=== PATIENT | female | born 1945 | race Caucasian/White ===

== ENCOUNTER 2016-06-25 18:38 | Emergency (ER) | payer MEDICARE, OTHER ==
[~2016-06-25 18:38] MED LIST: EPINEPHrine 1 MG/10 ML Abboject SYRINGE ONE
[2016-06-25] MEDS ORDERED: Famotidine/PF 20 mg/2ml Vial ONE (18:50)
[2016-06-25] MEDS ORDERED: diphenhydrAMINE HCl 50 MG/ML 1 ML VIAL ONE (18:50)
[2016-06-25] MEDS ORDERED: methylPREDNISolone Sod Succ/PF 125 MG/2 ML VIAL ONE (18:51)
[2016-06-25] MEDS ORDERED: Sodium Chloride 0.9% 1,000 ML ONE (18:51)
[2016-06-25] MEDS ORDERED: EPINEPHrine 1 MG/ML VIAL ONE ×2 (18:53→18:54)
[2016-06-25 19:01] LABS: #Basophils 0.1 thou/uL (0.0-0.2); #Eosinphils 0.3 thou/uL (0.0-0.7); #Lymphocytes 1.6 thou/uL (1.20-3.40); #Monocytes 0.2 thou/uL (0.11-0.59); #Neutrophils 2.6 thou/uL (1.40-6.50); %Basophils 2.5 % (0.0-1.0); %Eosinophils 5.9 % (0.0-10.0); %Lymphocytes 33.7 % (21.0-51.0); %Monocytes 3.8 % (0.0-10.0); Hematocrit 40.5 % (36.0-47.0); Mean Platelet Volume 6.3 fL (7.4-10.4); Red Blood Cell (RBC) Count 4.63 mill/uL (4.20-5.40); White Blood Cell (WBC) Count 4.7 thou/uL (4.8-10.8)
[2016-06-25 19:20] LABS: ALT (SGPT) 17 U/L (0-55); AST (SGOT) 23 U/L (5-34); Alkaline Phosphatase 56 U/L (40-150); Anion Gap 15 mmol/L (10-20); BUN (Urea Nitrogen) 18 mg/dL (9.8-20.1); Bilirubin, Total 0.4 mg/dL (0.2-1.2); Calc. Creatinine Clearance 0 mL/min (70-130); Calcium 9.2 mg/dL (7.8-10.44); Carbon Dioxide 24 mmol/L (23-31); Chloride 107 mmol/L (98-107); Estimated GFR-MDRD 41; Globulin 2.5 g/dL (2.4-3.5); Protein, Total 6.3 g/dL (5.8-8.1)
--- NOTE | 2016-06-25 21:22 | ERRECORD ---
[facility] EMERGENCY RECORD HPI ASTHMA (19:53 PMYE) CHIEF COMPLAINT: Patient presents for evaluation of allergic reaction. HISTORIAN: History provided by patient. LOCATION: Symptoms are localized, Tounge and throat. QUALITY: Symptoms described as tightness. SEVERITY: Maximum severity of symptoms moderate, Currently symptoms are moderate. TIME COURSE: Gradual onset of symptoms, Symptoms are worsening. ASTHMA ADMITS: There were no admits in the last five years. ASSOCIATED WITH: 70 y/o F w/ history of allergy presents w/ tongue swelling, erythematous skin and throat "feeling like it's going to close" Symptoms began when she was outside in her barn. EXACERBATED BY: Patient's condition exacerbated by nothing. RELIEVED BY: Patient's condition relieved by nothing. ROS (19:57 PMYE) CONSTITUTIONAL: Negative constitutional review of systems, Historian denies chills, denies fatigue, denies fever. EYES: Negative eye review of systems, Historian denies eye pain, denies eye redness, denies eye discharge. ENT: Historian reports dysphasia, denies epistaxis, denies otalgia, denies sore throat. + tongue swelling. CARDIOVASCULAR: Negative cardiovascular review of systems, Historian denies chest pain, denies dyspnea on exertion, denies syncope, denies palpitations. RESPIRATORY: Negative respiratory review of systems, Historian denies cough, denies shortness of breath, denies wheezing. GI: Negative gastrointestinal review of systems, Historian denies abdominal pain, denies constipation, denies diarrhea, denies nausea, denies vomiting. GENITOURINARY FEMALE: Negative genitourinary review of systems, Historian denies dysuria, denies urgency, denies vaginal bleeding, denies vaginal discharge. MUSCULOSKELETAL: Historian denies arthralgias, denies myalgias. SKIN: Negative skin review of systems, Historian denies rash, denies skin changes. NEUROLOGIC: Negative neurologic review of systems, Historian denies confusion, denies focal weakness, denies headache. PSYCHIATRIC: Negative psychiatric review of systems. PAST MEDICAL HISTORY (19:23 KASA) MEDICAL HISTORY: Tetanus not up to date, Past medical history includes history of diabetes, Type II, with neuropathy, Past medical history includes endocrine disease, hypothyroidism, Past medical history includes history of hyperlipidemia, high cholesterol, currently being treated, Past medical history includes history of hypertension, which has been treated, Patient is compliant. &a-1R&a+25V*p+0X*[id number]*c202B*c15G*c2P*p-0X&a-25V&a+1R Name: Ruma Weeks : 1945 F70 MedRec: [id number] AcctNum: [id number] Prepared: SunJun 26, 2016 00:32 by Interface Page 1 of 4 pMD [facility] EMERGENCY RECORD FEMALE SURGICAL HISTORY: Cataract surgery with lenses replacement bilaterally; Left lumpectomy; Thoracic outlet syndrome -removed first rib and nerve on left side., Surgical history of carpal tunnel surgery, Notes: Bilateral release, Surgical history of hysterectomy, Notes: At age of 28, Surgical history of orthopedic surgery, R TKR, Notes: Jose Luis Ulnar nerve transpositions; R trigger thumb release; Arthroscopic knee surgery on L x4;, Surgical history of thyroidectomy, Date of surgery 2013, Surgical history of tonsillectomy. SOCIAL HISTORY: Patient drinks socially, twice a month, Patient denies drug use, Patient has no smoking history, Lives at home, with family, Patient has pets. KNOWN ALLERGIES Tetanus Toxoid typhoid vaccine CURRENT MEDICATIONS levothyroxine: TABLET : Strength - 137 mcg : ORAL Patient Dose: once a day. (18:44 BDON) metFORMIN: TABLET, EXTENDED RELEASE 24 HR : Strength - 1,000 mg : ORAL Patient Dose: once a day. (18:45 BDON) TABLET, EXTENDED RELEASE 24 HR : Strength - 500 mg : ORAL Patient Dose: Unknown. (18:45 BDON) pantoprazole: TABLET, DELAYED RELEASE (ENTERIC COATED) : Strength - 40 mg : ORAL Patient Dose: 2 times a day. (18:45 BDON) losartan: TABLET : Strength - 50 mg : ORAL Patient Dose: once a day. (18:45 BDON) sertraline: TABLET : Strength - 100 mg : ORAL Patient Dose: once a day. (18:46 BDON) gabapentin: CAPSULE : Strength - 300 mg : ORAL Patient Dose: 2 times a day. (18:46 BDON) atorvastatin: TABLET : Strength - 40 mg : ORAL Patient Dose: 2 times a day. (18:46 BDON) cyclobenzaprine: TABLET : Strength - 10 mg : ORAL Patient Dose: 2 times a day. (18:47 BDON) magnesium oxide: CAPSULE : Strength - 400 mg : ORAL Patient Dose: once a day. (18:48 BDON) aspirin: &a-1R&a+25V*p+0X*[id number]*c202B*c15G*c2P*p-0X&a-25V&a+1R Name: Ruma Weeks : 1945 F70 MedRec: [id number] AcctNum: [id number] Prepared: SunJun 26, 2016 00:32 by Interface Page 2 of 4 pMD [facility] EMERGENCY RECORD TABLET : Strength - 325 mg : ORAL Patient Dose: once a day. (18:48 BDON) folic acid: TABLET : Strength - 1 mg : ORAL Patient Dose: once a day. (18:48 BDON) VITAL SIGNS VITAL SIGNS: BP: 129/53, Pulse: 70, Resp: 32, Temp: 97.0 (Oral), Pain: 0, O2 sat: 98, Time: 06/25/2016 18:40. (18:40 BDON) BP: 143/86, Pulse: 64, Resp: 26, Pain: 0, O2 sat: 100 on Room Air, Time: 06/25/2016 18:58. (18:58 EPIE) BP: 149/46, Pulse: 73, Resp: 21, O2 sat: 100 on Room Air, Time: 06/25/2016 19:01. (19:01 KASA) BP: 164/59, Pulse: 84, Resp: 17, O2 sat: 100, Time: 06/25/2016 19:15. (19:15 KASA) BP: 161/54, Pulse: 89, Resp: 19, O2 sat: 100 on Room Air, Time: 06/25/2016 19:31. (19:31 KASA) BP: 142/51, Pulse: 81, Resp: 16, O2 sat: 98 on Room Air, Time: 06/25/2016 19:45. (19:45 KASA) PHYSICAL EXAM (19:57 PMYE) CONSTITUTIONAL: Vital Signs Reviewed, Patient afebrile, Pulse normal, Blood pressure normal, Respiratory rate normal, Patient appears non toxic. HEAD: Head exam included findings of head atraumatic, normocephalic. EYES: Eye exam included findings of eyelids normal to inspection, Pupils equally round and reactive to light, Extraocular muscles intact. ENT: Uvula exam normal, Tonsil exam normal, Tongue Is moderately swollen and slightly raised. NECK: Neck exam normal. RESPIRATORY CHEST: Respiratory and chest exam normal, Breath sounds clear, No wheezing, No rales. ABDOMEN FEMALE: Abdominal exam normal, Abdominal exam included findings of abdomen nontender, Bowel sounds normal. BACK: Back exam normal. NEURO: Neuro exam normal, [place] coma scale 15, Neuro exam findings include patient oriented to person, place and time, Speech normal. SKIN: erythema noted to b/l UE's. PSYCHIATRIC: Psychiatric exam normal, Psychiatric exam included findings of patient oriented to person place and time, Normal affect. MEDICATION ADMINISTRATION SUMMARY Drug Name: EPINEPHrine injection, Dose Ordered: 0.3 mg, Route: Intramuscular, Status: Given, Time: 18:58 06/25/2016, Drug Name: famotidine (PF), Dose Ordered: 20 mg, Route: IV Push, Status: Given, Time: 18:58 06/25/2016, &a-1R&a+25V*p+0X*c8737A*c202B*c15G*c2P*p-0X&a-25V&a+1R Name: Ruma Weeks : 1945 F70 MedRec: [id number] AcctNum: [id number] Prepared: SunJun 26, 2016 00:32 by Interface Page 3 of 4 pMD [facility] EMERGENCY RECORD Drug Name: methylPREDNISolone sodium succ injection, Dose Ordered: 125 mg, Route: IV Push, Status: Given, Time: 18:57 06/25/2016, Drug Name: diphenhydrAMINE injection, Dose Ordered: 50 mg, Route: IV Push, Status: Given, Time: 18:56 06/25/2016, Drug Name: *sodium chloride 0.9 % intravenous, Dose Ordered: 1 L, Route: IV Fluid Infusion, Status: Given, Time: 18:55 06/25/2016, *Additional information available in notes, Detailed record available in Medication Service section. DOCTOR NOTES (20:02 PMYE) TEXT: Pt improved after epi and usual allergy meds here. Due to significance of reaction will admit to obs at [facility]. PROBLEM LIST No recorded problems DIAGNOSIS (20:33 PMYE) FINAL: PRIMARY: Allergic reaction. PRESCRIPTION No recorded prescriptions DISPOSITION PATIENT: Disposition Type: Transfer, Disposition: [facility], Disposition Transport: Ambulance. (20:33 PMYE) Patient left the department. (20:42 KASAlvaro) Gilman: SOPHIE=JUNIOR Duggan, Ivonne SOLANO=JUNIOR Parry, Amy BAR=JUNIOR Potts, Stephanie PMYE=DO Santos Paul &a-1R&a+25V*p+0X*[id number]*c202B*c15G*c2P*p-0X&a-25V&a+1R Name: MickyJailyn lynnRuma : 1945 F70 MedRec: [id number] AcctNum: [id number] Prepared: SunJun 26, 2016 00:32 by Interface Page 4 of 4 pMD MTDD
--- NOTE | 2016-06-25 21:27 | PICIS ---
[facility] EMERGENCY RECORD TRIAGE ([place] Jun 25, 2016 18:43 BDON) TRIAGE NOTES: Facial, tongue swelling with generalized rash, unknown reason. Took Benadryl 25mg tablet. ([place] Jun 25, 2016 18:43 BDON) PATIENT: NAME: Ruma Weeks, AGE: 70, GENDER: female, : [place] 1945, TIME OF GREET: [place] Jun 25, 2016 18:39, PREFERRED LANGUAGE: Romanian, ECODE BILLING MAP: [facility], SSN: [id number], Zip Code: [address], KG WEIGHT: 86.18, PHONE: , , , PERSON ID: [id number], PCP: Kenneth WAGONER JEFFREY. ([place] Jun 25, 2016 18:43 BDON) COMPLAINT: ITCHING,TONGUE SWELLING,STRAINED BREATHING. ([place] Jun 25, 2016 18:43 BDON) ADMISSION: URGENCY: 2 Emergent, ADMISSION SOURCE: Home, TRANSPORT: Walk-in, BED: TRIAGE. ([place] Jun 25, 2016 18:43 BDON) PAIN: No complaint of pain. (19:23 KASA) IMMUNIZATIONS: Flu vaccine up to date, Tetanus not up to date. (19:23 KASA) SIRS SCORING: Heart Rate 55-109 (0), Temp range 96.8-101.1 (0), respiratory rate 12-24 (0), Mental Status altered: no (0). (19:23 KASA) TRIAGE SCREENING: Patient denies suicidal ideation, Patient denies presence of domestic violence. (19:23 KASA) TREATMENTS IN PROGRESS: Treatments given Prehospital: Benadryl 25 mg. (19:23 KASA) PROVIDERS: TRIAGE NURSE: Ivonne Duggan RN. ([place] Jun 25, 2016 18:43 BDON) VITAL SIGNS: BP 129/53, Pulse 70, Resp 32, Temp 97.0, (Oral), Pain 0, O2 Sat 98, Time 06/25/2016 18:40. (18:40 BDON) KNOWN ALLERGIES Tetanus Toxoid typhoid vaccine CURRENT MEDICATIONS levothyroxine: TABLET : Strength - 137 mcg : ORAL Patient Dose: once a day. (18:44 BDON) metFORMIN: TABLET, EXTENDED RELEASE 24 HR : Strength - 1,000 mg : ORAL Patient Dose: once a day. (18:45 BDON) TABLET, EXTENDED RELEASE 24 HR : Strength - 500 mg : ORAL Patient Dose: Unknown. (18:45 BDON) pantoprazole: TABLET, DELAYED RELEASE (ENTERIC COATED) : Strength - 40 mg : ORAL Patient Dose: 2 times a day. (18:45 BDON) losartan: TABLET : Strength - 50 mg : ORAL Patient Dose: once a day. (18:45 BDON) &a-1R&a+25V*p+0X*c9193H*c202B*c15G*c2P*p-0X&a-25V&a+1R Name: Ruma Weeks : 1945 F70 MedRec: [id number] AcctNum: [id number] Prepared: SunJun 26, 2016 00:38 by Interface Page [address] [facility] EMERGENCY RECORD sertraline: TABLET : Strength - 100 mg : ORAL Patient Dose: once a day. (18:46 BDON) gabapentin: CAPSULE : Strength - 300 mg : ORAL Patient Dose: 2 times a day. (18:46 BDON) atorvastatin: TABLET : Strength - 40 mg : ORAL Patient Dose: 2 times a day. (18:46 BDON) cyclobenzaprine: TABLET : Strength - 10 mg : ORAL Patient Dose: 2 times a day. (18:47 BDON) magnesium oxide: CAPSULE : Strength - 400 mg : ORAL Patient Dose: once a day. (18:48 BDON) aspirin: TABLET : Strength - 325 mg : ORAL Patient Dose: once a day. (18:48 BDON) folic acid: TABLET : Strength - 1 mg : ORAL Patient Dose: once a day. (18:48 BDON) VITAL SIGNS VITAL SIGNS: BP: 129/53, Pulse: 70, Resp: 32, Temp: 97.0 (Oral), Pain: 0, O2 sat: 98, Time: 06/25/2016 18:40. (18:40 BDON) BP: 143/86, Pulse: 64, Resp: 26, Pain: 0, O2 sat: 100 on Room Air, Time: 06/25/2016 18:58. (18:58 EPIE) BP: 149/46, Pulse: 73, Resp: 21, O2 sat: 100 on Room Air, Time: 06/25/2016 19:01. (19:01 KASA) BP: 164/59, Pulse: 84, Resp: 17, O2 sat: 100, Time: 06/25/2016 19:15. (19:15 KASA) BP: 161/54, Pulse: 89, Resp: 19, O2 sat: 100 on Room Air, Time: 06/25/2016 19:31. (19:31 KASA) BP: 142/51, Pulse: 81, Resp: 16, O2 sat: 98 on Room Air, Time: 06/25/2016 19:45. (19:45 KASA) NURSING ASSESSMENT: ALLERGIC REACTION (18:46 BDON) CONSTITUTIONAL: Patient arrives ambulatory, History obtained from patient, Patient appears, restless, uncomfortable, Patient cooperative, Patient alert, Oriented to person, place and time, Skin warm, Skin dry, Skin, mottled. ALLERGIC REACTION: Allergic reaction to unknown allergen, No history of past allergic reactions, Allergic reaction symptoms include difficulty breathing, Allergic reaction symptoms include difficulty swallowing, Allergic reaction symptoms include localized swelling, Allergic reaction symptoms include rash, Allergic reaction symptoms include swelling to extremities, Allergic reaction symptoms include swelling to face, Allergic reaction symptoms &a-1R&a+25V*p+0X*n7832R*c202B*c15G*c2P*p-0X&a-25V&a+1R Name: Ruma Weeks : 1945 F70 MedRec: [id number] AcctNum: [id number] Prepared: SunJun 26, 2016 00:38 by Interface Page [address] [facility] EMERGENCY RECORD include swelling to mouth, Pain assessment findings include: Patient denies complaints of pain. RESPIRATORY: Respiratory assessment findings include respiratory effort, labored, shallow, Converses, in short phrases, in single words, Chest expansion equal, Chest movement symmetrical, Signs of distress, nasal flaring. SKIN: Inspection findings include swelling. SAFETY: Cart/Stretcher in lowest position, Family at bedside, Call light within reach, Hospital ID band on, Patient in view of the nursing station. NURSING ASSESSMENT: FALL RISK (19:50 KASA) FALL RISK: Use of level of consciousness altering agents with mentation or cognitive changes (3), Sensory deficits (1), Impaired mobility (3), Total score 7, Fall risk. NURSING ASSESSMENT: SKIN (19:48 KASA) SKIN: Skin assessment findings include skin warm, Skin dry, Skin normal in color, Inspection findings include bruising, to R forearm, caused by dogs and cats at home, Inspection findings include rash, red, hives, itchy, to Torso, BLE, BUE. SAFETY: Side rails up, Cart/Stretcher in lowest position, Family at bedside, Call light within reach, Hospital ID band on. NURSING PROCEDURE: BEDSIDE SIRS TESTING (19:48 KASA) SCORES: Heart Rate 55-109 (0), Temp range 96.8-101.1 (0), respiratory rate 12-24 (0), Latest WBC 3-14.9 (0), Mental Status altered: no (0). NURSING PROCEDURE: POWER MACHINE OPERATOR (18:56 EPIE) POWER MACHINE OPERATOR: Patient placed on gambling monitor, Patient placed on non-invasive blood pressure monitor, with disposable blood pressure cuff applied, Patient placed on continuous pulse oximetry, Adult/pediatric oxisensor applied. FOLLOW-UP: After procedure, alarms set and on, After procedure, patient tolerating monitoring. NURSING PROCEDURE: IV PATIENT IDENITIFIER: Patient actively involved in identification process, Patient's identity verified by patient stating name, Patient's identity verified by hospital ID bracelet. (18:57 EPIE) IV SITE 1: IV established, to the right antecubital, using an 18 gauge catheter, in two attempts, IV site prepped with CHLOROPREP, Saline lock established, Flushed with normal saline (mls): 10, Labs drawn at time of placement, labeled in the presence of the patient and sent to lab. (18:56 EPIE) IV established, to the left wrist, using a 20 gauge catheter, in one &a-1R&a+25V*p+0X*j3281P*c202B*c15G*c2P*p-0X&a-25V&a+1R Name: Ruma Weeks : 1945 F70 MedRec: [id number] AcctNum: [id number] Prepared: SunJun 26, 2016 00:38 by Interface Page 3 of 10 pMD [facility] EM[facility]GENCY RECORD attempt, IV site prepped with CHLOROPREP, Saline lock established, Flushed with normal saline (mls): 10, Notes: IV started by Stephanie PACHECO. (18:57 EPIE) FOLLOW-UP SITE 1: After procedure, no drainage at IV site, After procedure, no swelling at IV site, After procedure, no redness at IV site. (18:56 EPIE) After procedure, no drainage at IV site, After procedure, no swelling at IV site, After procedure, no redness at IV site. (18:57 EPIE) NURSING PROCEDURE: NURSE NOTES NURSES NOTES: Patient is improving, Notes: family at bedside. (19:04 BDON) Notes: Informed by patient's sister that patient feels like the itching is returning and the swelling in her tongue. ERMD informed. On phone with [facility] regarding transfer. (19:43 KASA) NURSING PROCEDURE: TRANSFER (20:15 KASA) TRANSFER: Reason for transfer need for specialized care, Diagnosis: Angioedema, Accepting institution: [facility], Accepting physician: Idania, Referring physician: Danielle, Transported by non-urgent ambulance, accompanied by emergency medical services personnel, Report called to receiving facility, JUNIOR Dalton, Provided opportunity to answer questions, Bed assigned ER to ER, Summary of Care printed, Copy of patient record prepared for receiving facility, Copy of diagnostic studies, Status of patient's valuables documented on chart, Medication reconciliation form prepared and sent to receiving facility, Patient consent for transfer signed, Patient given appropriate sedation for safe transport, Family member contacted, Sister at bedside. BELONGINGS: Belongings and valuables with patient upon arrival to the Emergency Department include:, Belongings and valuables with patient at time of discharge include:, Belongings remain with patient, Valuables remain with patient. SAFETY: Side rails up, Cart/Stretcher in lowest position, Family at bedside, Call light within reach, Hospital ID band on. ORDER DETAILS Order Name: CBC with Differential, Status: Active, Time: 18:52 06/25/2016, User: PMYE, - Ordered for: DO Santos Paul, - Entered by: DO Santos Paul - Sun Jun 25, 2016 18:52, - Quantity: 1, Order Name: Comprehensive Metabolic Panel, Status: Active, Time: 18:52 06/25/2016, User: PMYE, - Ordered for: DO Santos Paul, - Entered by: DO Santos Paul - Anjana Jun 25, 2016 18:52, - Quantity: 1. MEDICATION ADMINISTRATION SUMMARY &a-1R&a+25V*p+0X*m2093W*c202B*c15G*c2P*p-0X&a-25V&a+1R Name: Ruma Weeks : 1945 F70 MedRec: [id number] AcctNum: [id number] Prepared: SunJun 26, 2016 00:38 by Interface Page [address] [facility] EMERGENCY RECORD Drug Name: EPINEPHrine injection, Dose Ordered: 0.3 mg, Route: Intramuscular, Status: Given, Time: 18:58 06/25/2016, Drug Name: famotidine (PF), Dose Ordered: 20 mg, Route: IV Push, Status: Given, Time: 18:58 06/25/2016, Drug Name: methylPREDNISolone sodium succ injection, Dose Ordered: 125 mg, Route: IV Push, Status: Given, Time: 18:57 06/25/2016, Drug Name: diphenhydrAMINE injection, Dose Ordered: 50 mg, Route: IV Push, Status: Given, Time: 18:56 06/25/2016, Drug Name: *sodium chloride 0.9 % intravenous, Dose Ordered: 1 L, Route: IV Fluid Infusion, Status: Given, Time: 18:55 06/25/2016, *Additional information available in notes, Detailed record available in Medication Service section. MEDICATION SERVICE diphenhydrAMINE injection: Order: diphenhydrAMINE injection (diphenhydramine HCl) - Dose: 50 mg : IV Push Ordered by: Edin Santos DO Entered by: DO Anjana Syed Jun 25, 2016 18:48 Documented as given by: JUNIOR Martinez Jun 25, 2016 18:56 Patient, Medication, Dose, Route and Time verified prior to administration. IV SITE #1 IVP, Catheter placement confirmed via flush prior to administration, IV site without signs or symptoms of infiltration during medication administration, No swelling during administration, No drainage during administration, IV flushed after administration, Correct patient, time, route, dose and medication confirmed prior to administration, Patient advised of actions and side-effects prior to administration, Allergies confirmed and medications reviewed prior to administration. : Follow Up : Response assessment performed, No signs or symptoms of allergic reaction noted, _IV SITE #1:_, Medication infusion discontinued, on SunJun 25, 2016 18:57, 5 minutes, ., Total amount infused: 1ml. (19:40 LEEW) EPINEPHrine injection: Order: EPINEPHrine injection (epinephrine) - Dose: 0.3 mg : Intramuscular Ordered by: Edin Santos DO Entered by: Edin Santos DO [place] Jun 25, 2016 18:54 Documented as given by: Aiyana Hall RN [place] Jun 25, 2016 18:58 Patient, Medication, Dose, Route and Time verified prior to administration. IM medication, Amount given: 0.3 mg, Correct patient, time, route, dose and medication confirmed prior to administration, Patient advised of actions and side-effects prior to administration, Allergies confirmed and medications reviewed prior to administration, Administered by Tete HALL RN GIVEN RT UPPER ARM, Patient in position of comfort, Side rails up, Cart in lowest position, Family at bedside. famotidine (PF): Order: famotidine (PF) (famotidine/preservative free) - Dose: 20 mg : IV Push Ordered by: Edin Santos DO &a-1R&a+25V*p+0X*v0278T*c202B*c15G*c2P*p-0X&a-25V&a+1R Name: Ruma Weeks : 1945 F70 MedRec: [id number] AcctNum: [id number] Prepared: SunJun 26, 2016 00:38 by Interface Page [address] [facility] EMERGENCY RECORD Entered by: Edin Santos DO [place] Jun 25, 2016 18:48 Documented as given by: Ivonne Duggan RN [place] Jun 25, 2016 18:58 Patient, Medication, Dose, Route and Time verified prior to administration. IV SITE #1 IVP, Catheter placement confirmed via flush prior to administration, IV site without signs or symptoms of infiltration during medication administration, No swelling during administration, No drainage during administration, IV flushed after administration, Correct patient, time, route, dose and medication confirmed prior to administration, Patient advised of actions and side-effects prior to administration, Allergies confirmed and medications reviewed prior to administration. : Follow Up : Response assessment performed, No signs or symptoms of allergic reaction noted, _IV SITE #1:_, Medication infusion discontinued, on [place] Jun 25, 2016 18:59, 5 minutes, ., Total amount infused: 1ml, IV Line flushed after administration. (19:44 LEEW) methylPREDNISolone sodium succ injection: Order: methylPREDNISolone sodium succ injection (methylprednisolone sod succ) - Dose: 125 mg : IV Push Ordered by: Edin Santos DO Entered by: Edin Santos DO [place] Jun 25, 2016 18:48 Documented as given by: Ivonne Duggan RN [place] Jun 25, 2016 18:57 Patient, Medication, Dose, Route and Time verified prior to administration. IV SITE #1 IVP, Catheter placement confirmed via flush prior to administration, IV site without signs or symptoms of infiltration during medication administration, No swelling during administration, No drainage during administration, IV flushed after administration, Correct patient, time, route, dose and medication confirmed prior to administration, Patient advised of actions and side-effects prior to administration, Allergies confirmed and medications reviewed prior to administration. : Follow Up : _IV SITE #1:_, Medication infusion discontinued, on [place] Jun 25, 2016 19:00, 5 minutes, ., Total amount infused: 2ml, IV Line flushed after administration. (19:45 LEEW) sodium chloride 0.9 % intravenous: Order: sodium chloride 0.9 % intravenous (0.9 % sodium chloride) - Dose: 1 L : IV Fluid Infusion Notes: (Bolus) Ordered by: Edin Santos DO Entered by: Edin Santos DO [place] Jun 25, 2016 18:50 Documented as given by: Aiyana Hall RN [place] Jun 25, 2016 18:55 Patient, Medication, Dose, Route and Time verified prior to administration. Amount given: 1000 CC, IV SITE #1 IV fluids established for hydration, IV SITE #1 into right antecubital, IV SITE #1 1st bag hung, amount 1 Liter hung, IV SITE #1 bolus of 1000 ml established, via primary tubing, Catheter placement confirmed via flush prior to administration, IV site without signs or symptoms of infiltration &a-1R&a+25V*p+0X*g3973Z*c202B*c15G*c2P*p-0X&a-25V&a+1R Name: Ruma Weeks : 1945 F70 MedRec: [id number] AcctNum: [id number] Prepared: SunJun 26, 2016 00:38 by Interface Page [address] [facility] EMERGENCY RECORD during medication administration, No swelling during administration, No drainage during administration, IV flushed after administration, Correct patient, time, route, dose and medication confirmed prior to administration, Patient advised of actions and side-effects prior to administration, Allergies confirmed and medications reviewed prior to administration, Administered by Tete HALL RN, Patient in position of comfort, Side rails up, Cart in lowest position, Family at bedside. : Follow Up : No signs or symptoms of allergic reaction noted, Site inspection shows, No swelling at administration site, No drainage at administration site, No bleeding at site, No bruising noted at site, _IV SITE #1:_, IV fluid infusion discontinued, on SunJun 25, 2016 19:45, 50 minutes, ., Total amount infused: 1000 ml, IV Line flushed after administration, Advised not to ambulate without assistance, Patient in position of comfort, Side rails up, Cart in lowest position, Family at bedside. (19:45 KASA) HPI ASTHMA (19:53 PMYE) CHIEF COMPLAINT: Patient presents for evaluation of allergic reaction. HISTORIAN: History provided by patient. LOCATION: Symptoms are localized, Tounge and throat. QUALITY: Symptoms described as tightness. SEVERITY: Maximum severity of symptoms moderate, Currently symptoms are moderate. TIME COURSE: Gradual onset of symptoms, Symptoms are worsening. ASTHMA ADMITS: There were no admits in the last five years. ASSOCIATED WITH: 70 y/o F w/ history of allergy presents w/ tongue swelling, erythematous skin and throat "feeling like it's going to close" Symptoms began when she was outside in her barn. EXACERBATED BY: Patient's condition exacerbated by nothing. RELIEVED BY: Patient's condition relieved by nothing. ROS (19:57 PMYE) CONSTITUTIONAL: Negative constitutional review of systems, Historian denies chills, denies fatigue, denies fever. EYES: Negative eye review of systems, Historian denies eye pain, denies eye redness, denies eye discharge. ENT: Historian reports dysphasia, denies epistaxis, denies otalgia, denies sore throat. + tongue swelling. CARDIOVASCULAR: Negative cardiovascular review of systems, Historian denies chest pain, denies dyspnea on exertion, denies syncope, denies palpitations. RESPIRATORY: Negative respiratory review of systems, Historian denies cough, denies shortness of breath, denies wheezing. GI: Negative gastrointestinal review of systems, Historian denies abdominal pain, denies constipation, denies diarrhea, denies nausea, denies vomiting. GENITOURINARY FEMALE: Negative genitourinary review of systems, Historian denies dysuria, denies urgency, denies vaginal bleeding, denies vaginal discharge. &a-1R&a+25V*p+0X*m3503B*c202B*c15G*c2P*p-0X&a-25V&a+1R Name: Ruma Weeks : 1945 F70 MedRec: [id number] AcctNum: [id number] Prepared: SunJun 26, 2016 00:38 by Interface Page [address] [facility] EMERGENCY RECORD MUSCULOSKELETAL: Historian denies arthralgias, denies myalgias. SKIN: Negative skin review of systems, Historian denies rash, denies skin changes. NEUROLOGIC: Negative neurologic review of systems, Historian denies confusion, denies focal weakness, denies headache. PSYCHIATRIC: Negative psychiatric review of systems. PAST MEDICAL HISTORY (19:23 KASA) MEDICAL HISTORY: Tetanus not up to date, Past medical history includes history of diabetes, Type II, with neuropathy, Past medical history includes endocrine disease, hypothyroidism, Past medical history includes history of hyperlipidemia, high cholesterol, currently being treated, Past medical history includes history of hypertension, which has been treated, Patient is compliant. FEMALE SURGICAL HISTORY: Cataract surgery with lenses replacement bilaterally; Left lumpectomy; Thoracic outlet syndrome -removed first rib and nerve on left side., Surgical history of carpal tunnel surgery, Notes: Bilateral release, Surgical history of hysterectomy, Notes: At age of 28, Surgical history of orthopedic surgery, R TKR, Notes: Jose Luis Ulnar nerve transpositions; R trigger thumb release; Arthroscopic knee surgery on L x4;, Surgical history of thyroidectomy, Date of surgery 2013, Surgical history of tonsillectomy. SOCIAL HISTORY: Patient drinks socially, twice a month, Patient denies drug use, Patient has no smoking history, Lives at home, with family, Patient has pets. PHYSICAL EXAM (19:57 PMYE) CONSTITUTIONAL: Vital Signs Reviewed, Patient afebrile, Pulse normal, Blood pressure normal, Respiratory rate normal, Patient appears non toxic. HEAD: Head exam included findings of head atraumatic, normocephalic. EYES: Eye exam included findings of eyelids normal to inspection, Pupils equally round and reactive to light, Extraocular muscles intact. ENT: Uvula exam normal, Tonsil exam normal, Tongue Is moderately swollen and slightly raised. NECK: Neck exam normal. RESPIRATORY CHEST: Respiratory and chest exam normal, Breath sounds clear, No wheezing, No rales. ABDOMEN FEMALE: Abdominal exam normal, Abdominal exam included findings of abdomen nontender, Bowel sounds normal. BACK: Back exam normal. NEURO: Neuro exam normal, [place] coma scale 15, Neuro exam findings include patient oriented to person, place and time, Speech normal. &a-1R&a+25V*p+0X*t8017G*c202B*c15G*c2P*p-0X&a-25V&a+1R Name: Ruma Weeks : 1945 F70 MedRec: [id number] AcctNum: [id number] Prepared: SunJun 26, 2016 00:38 by Interface Page [address] [facility] EMERGENCY RECORD SKIN: erythema noted to b/l UE's. PSYCHIATRIC: Psychiatric exam normal, Psychiatric exam included findings of patient oriented to person place and time, Normal affect. EVENTS TRANSFER: Triage to Emergency Triage. (Anjana Jun 25, 2016 18:43 BDON) Emergency Triage to Emergency Room -02. (18:55 EPIE) Removed from Emergency Emergency Room -02. (20:42 KASA) DOCTOR NOTES (20:02 PMYE) TEXT: Pt improved after epi and usual allergy meds here. Due to significance of reaction will admit to obs at [facility]. PROBLEM LIST No recorded problems DIAGNOSIS (20:33 PMYE) FINAL: PRIMARY: Allergic reaction. DISPOSITION PATIENT: Disposition Type: Transfer, Disposition: [facility], Disposition Transport: Ambulance. (20:33 PMYE) Patient left the department. (20:42 KASA) PRESCRIPTION No recorded prescriptions IMAGING *MEMORANDUM OF TRANSFER: Image captured from scanner. (19:56 LEEW) TRANSFER CONSENT: Image captured from scanner. (19:57 LEEW) TELEMETRY STRIP: Image captured from scanner. (20:00 LEEW) *SUPPLY CHARGE SHEET: Image captured from scanner. (20:17 LEEW) ADMIN DIGITAL SIGNATURE: JUNIOR Hall, Aiyana. (19:00 [facility]) JUNIOR Orozco Lee. (20:11 LEEW) DO Santos Paul. (SunJun 26, 2016 00:28 PMYE) RESULTS (20:00 PMYE) LABORATORY: Comprehensive Metabolic Panel Collection DT: [place] Jun 25, 2016 18:59, Sodium 142 mmol/L, Range (136-145), Potassium 4.0 mmol/L, Range (3.5-5.1), Chloride 107 mmol/L, Range (98-107), Carbon Dioxide 24 mmol/L, Range (23-31), Anion Gap 15 mmol/L, Range (10-20), BUN (Urea Nitrogen) 18 mg/dL, Range (9.8-20.1), *Creatinine 1.30 - H mg/dL, Range (0.6-1.1), &a-1R&a+25V*p+0X*t2745T*c202B*c15G*c2P*p-0X&a-25V&a+1R Name: Ruma Weeks : 1945 F70 MedRec: [id number] AcctNum: [id number] Prepared: SunJun 26, 2016 00:38 by Interface Page [address] [facility] EMERGENCY RECORD Estimated GFR-MDRD 41 , Reference Range for Estimated GFR: Greater than 90, mL/min/1.73 m2 NOTE: The MDRD equation has not been validated for use, with the elderly (over 70 years of age), women, patients with, serious comorbid condition or persons with extremes of body size, muscle, mass, or nutritional status. , *Glucose 173 - H mg/dL, Range (80-115), Calcium 9.2 mg/dL, Range (7.8-10.44), Bilirubin, Total 0.4 mg/dL, Range (0.2-1.2), Protein, Total 6.3 g/dL, Range (5.8-8.1), NOTE: Plasma values are generally 0.3 to 0.5 g/dL higher than serum values, due to the presence of fibrinogen. , Albumin 3.8 g/dL, Range (3.4-4.8), Globulin 2.5 g/dL, Range (2.4-3.5), Alb/Glob Ratio 1.5 g/dL, Range (1.2-2.2), Alkaline Phosphatase 56 U/L, Range (40-150), AST (SGOT) 23 U/L, Range (5-34), ALT (SGPT) 17 U/L, Range (0-55). CBC with Differential Collection DT: Anjana Jun 25, 2016 18:59, *White Blood Cell (WBC) Count 4.7 - L thou/uL, Range (4.8-10.8), Red Blood Cell (RBC) Count 4.63 mill/uL, Range (4.20-5.40), Hemoglobin 13.5 g/dL, Range (12.0-16.0), Hematocrit 40.5 %, Range (36.0-47.0), Mean Corpuscular Volume 87.4 fl, Range (81.0-99.0), Mean Corpuscular Hemoglobin 29.2 pg, Range (27.0-31.0), Mean Corpuscular HGB CONC 33.4 g/dL, Range (32.0-36.0), RBC Distribution Width 12.4 %, Range (11.5-14.5), Platelet Count 227 thou/uL, Range (130-400), *Mean Platelet Volume 6.3 - L fL, Range (7.4-10.4), %Neutrophils 54.1 %, Range (42.0-75.0), %Lymphocytes 33.7 %, Range (21.0-51.0), %Monocytes 3.8 %, Range (0.0-10.0), %Eosinophils 5.9 %, Range (0.0-10.0), *%Basophils 2.5 - H %, Range (0.0-1.0), #Neutrophils 2.6 thou/uL, Range (1.40-6.50), #Lymphocytes 1.6 thou/uL, Range (1.20-3.40), #Monocytes 0.2 thou/uL, Range (0.11-0.59), #Eosinphils 0.3 thou/uL, Range (0.0-0.7), #Basophils 0.1 thou/uL, Range (0.0-0.2). Gilman: SOPHIE=JUNIOR Duggan, Ivonne SOLANO=JUNIOR Parry, Amy BAR=JUNIOR Potts, Stephanie DELA CRUZ=JUNIOR Orozco, Kyle DALLAS=JUNIOR Hall, Aiyana PMYE=DO Santos Paul &a-1R&a+25V*p+0X*q2103T*c202B*c15G*c2P*p-0X&a-25V&a+1R Name: Ruma Weeks : 1945 F70 MedRec: [id number] AcctNum: [id number] Prepared: SunJun 26, 2016 00:38 by Interface Page 10 of 10 pMD MTDD
== END 2016-06-25 20:20 | disposition short-term general hospital (02) ==
LOC: NAV ERS 18:38
DX: T78.40XA Allergy, unspecified, initial encounter (principal); L53.9 Erythematous condition, unspecified; E11.9 Type 2 diabetes mellitus without complications; E03.9 Hypothyroidism, unspecified; E78.5 Hyperlipidemia, unspecified; E78.00 Pure hypercholesterolemia, unspecified; Z79.899 Other long term (current) drug therapy; Z79.84 Long term (current) use of oral hypoglycemic drugs; Z79.82 Long term (current) use of aspirin; Z88.7 Allergy status to serum and vaccine; Z90.710 Acquired absence of both cervix and uterus; Z98.890 Other specified postprocedural states
CPT/HCPCS: 80053; 85025; 96361; 96372; 96374; 96375; J0171; J1200; J2930; J7050; S0028